=== PATIENT | female | born 1995 | race African-American/Black ===

== ENCOUNTER 2022-10-03 04:29 | Emergency (ER) | payer OTHER ==
[~2022-10-03] VITALS: Ht 162.6 cm; Wt 43.1 kg
--- NOTE | 2022-10-03 04:47 | NUR ---
BIBSELF FROM HOME C/O DYSURIA SINCE 11PM. PT A/OX4. TOLERATING R/A WELL WITH NO RESP DISTRESS. SAFETY MEASURES IN PLACE.
[2022-10-03 06:40] LABS: BILIRUBIN,URINE NEGATIVE (NEGATIVE); LEUKOCYTE ESTERASE ,URINE NEGATIVE (NEGATIVE); NITRITE, URINE NEGATIVE (NEGATIVE); PH,URINE 6.5 (5.0-8.0); PROTEIN,URINE NEGATIVE (NEGATIVE); UGLUCOSE NEGATIVE (NEGATIVE); UROBILINOGEN,URINE 0.2 EU/dL (0.2)
[2022-10-03 06:41] LABS: COLOR,URINE STRAW (YELLOW)
[2022-10-03] MEDS ORDERED: PHEN-704 PO (06:52)
--- NOTE | 2022-10-03 06:59 | NUR ---
Patient discharged to home in stable condition. Written and verbal after care instructions given. Patient verbalizes understanding of instruction. ambulatory with a steady gait.
[2022-10-03 07:00] VITALS: BP 114/86
[2022-10-03] MEDS ORDERED: SULF1TAB48 PO (18:18)
== END 2022-10-03 07:01 | disposition home or self-care (01) ==
LOC: ER 04:33
DX: N39.0 Urinary tract infection, site not specified (principal)
CPT/HCPCS: 84703-TC

== ENCOUNTER 2022-10-03 16:17 | Emergency (ER) | payer OTHER ==
[~2022-10-03] VITALS: Ht 157.5 cm; Wt 45.4 kg
[~2022-10-03 16:17] MED LIST: PHEN-704 PO
--- NOTE | 2022-10-03 16:45 | NUR ---
BIBS C/O ABDOMINAL PAIN AND UNABLE TO URINATE, WAS SEEN HERE EARLIER FOR THE SAME COMPLAINT. PT STATED THAT SHE WAS ABLE TO PROVIDE A URINE SAMPLE ON HER OWN EARLIER BUT HAS NOT BEEN ABLE TO URINATE SINCE.
--- NOTE | 2022-10-03 16:58 | NUR ---
ULTRASOUND AT BEDSIDE
[2022-10-03 17:14] LABS: BASOPHILS % (AUTO) 0.5 % (0.0-2.0); EOSINOPHILS % (AUTO) 2.3 % (0.0-6.0); HEMATOCRIT 40 % (33-45); HEMOGLOBIN 12.8 g/dL (11.5-14.8); LYMPHOCYTES # (AUTO) 1.8 K/uL (0.8-4.8); LYMPHOCYTES % (AUTO) 21.7 % (20.0-44.0); MEAN CORPUSCULAR HGB CONC 32 g/dl (31.0-36.0); MEAN CORPUSCULAR VOLUME 96 fL (82-100); MONOCYTES # (AUTO) 0.6 K/uL (0.1-1.30); MONOCYTES % (AUTO) 7.4 % (2.0-12.0); NEUTROPHILS # (AUTO) 5.6 K/uL (1.8-8.9); NEUTROPHILS % (AUTO) 68.1 % (43.0-81.0); PLATELET COUNT (AUTO) 253 K/uL (150-450); RED BLOOD CELL COUNT(AUTO) 4.17 MIL/uL (4.0-5.2); WHITE BLOOD COUNT (AUTO) 8.2 K/uL (4.3-11.0)
--- NOTE | 2022-10-03 17:20 | NUR ---
16FR URINE CATHETER IN PLACE, 1100CC URINE OUTPUT INITIALLY, EDDIE COLOR.
--- NOTE | 2022-10-03 17:32 | NUR ---
URINE COLLECTED AND SENT
[2022-10-03 17:34] LABS: CALCIUM, SERUM 9.2 mg/dL (8.5-10.1); CREATININE 0.8 mg/dL (0.6-1.3); POTASSIUM 3.4 mmol/L (3.5-5.1)
[2022-10-03 17:55] LABS: BILIRUBIN,URINE NEGATIVE (NEGATIVE); COLOR,URINE YELLOW (YELLOW); LEUKOCYTE ESTERASE ,URINE NEGATIVE (NEGATIVE); NITRITE, URINE POSITIVE (NEGATIVE); PH,URINE 7.5 (5.0-8.0); PROTEIN,URINE TRACE mg/dl (NEGATIVE); UGLUCOSE TRACE mg/dL (NEGATIVE)
[2022-10-03 18:16] LABS: BACTERIA,URINE Rare /HPF (None Seen); SQUAMOUS EPITHELIAL CELL,UR Rare /HPF (None Seen); WBC,URINE NONE SEEN /HPF (0-3)
[2022-10-03] MEDS ORDERED: SULF1TAB48 PO (18:18)
--- NOTE | 2022-10-03 18:25 | NUR ---
HENDRICKSON CATHETER CHANGED INTO LEG BAG
--- NOTE | 2022-10-03 18:45 | NUR ---
Patient discharged to home in stable condition. Written and verbal after care instructions given. Patient verbalizes understanding of instruction.
[2022-10-03 18:46] VITALS: BP 129/72
== END 2022-10-03 18:46 | disposition home or self-care (01) ==
LOC: ER 16:24
DX: N39.0 Urinary tract infection, site not specified (principal); Z79.899 Other long term (current) drug therapy
CPT/HCPCS: 36415; 76770-TC; 80048-TC; 81001; 85025-TC; 87086-TC

== ENCOUNTER 2022-10-07 20:38 | Emergency (ER) | payer OTHER ==
[~2022-10-07] VITALS: Ht 162.6 cm; Wt 43.1 kg
[~2022-10-07 20:38] MED LIST changes: +SULF1TAB48 PO
[2022-10-07 20:54] VITALS: BP 119/69
--- NOTE | 2022-10-07 20:54 | NUR ---
RYAN. HENDRICKSON CATH REMOVAL PLACED ON 10/03/22 D/T RETENTION 2ND TO UTI
--- NOTE | 2022-10-07 21:18 | NUR ---
D/C F/C; PT TOLERATED WELL.
--- NOTE | 2022-10-07 21:19 | NUR ---
Patient discharged to home in stable condition. Written and verbal after care instructions given. Patient verbalizes understanding of instruction.
== END 2022-10-07 21:19 | disposition home or self-care (01) ==
LOC: ER 20:53
DX: R33.9 Retention of urine, unspecified (principal); Z44.8 Encounter for fitting and adjustment of other external prosthetic devices; Z79.899 Other long term (current) drug therapy